=== PATIENT | male | born 1995 | race Caucasian/White ===

== ENCOUNTER → 2018-03-06 | Outpatient (CLI) | payer BC ==
[~2018-03-06] MED LIST: EPIN0.3P15 IM; IOPAMIDOL 76% 75 ML INFUS BTL 75 ML ONE; PRED20TA6 PO
--- NOTE | 2018-03-06 17:30 | RADIOLOGY IMAGING REPORT ---
FACILITY: [facility] PATIENT NAME: Chuck Lopez : 1995 MR: [id number] V: [id number] EXAM DATE: ORDERING PHYSICIAN: RAVIN VALERIO TECHNOLOGIST: Location: [facility] - [place] Patient: Chuck Lopez : 1995 Visit/Account:[id number] Date of Sevice: 03/06/2018 NECK SOFT TISSUE W CONTRAST History: left cervical lymphadenopathy COMPARISON STUDIES: none TECHNIQUE: Contiguous axial images were obtained from the skull base through the upper thoracic spin e following administration of IV contrast . Coronal and sagittal reformatted images were obtained fro m the axial source data. One of the following dose optimization techniques was utilized in the perfor yelitza of this exam: Automated exposure control; adjustment of the mA and/or kV according to the patie nt's size; or use of an iterative reconstruction technique. Specific details can be referenced in [facility]'s radiology CT exam operational policy. Contrast: 75 mL Isovue-370 FINDINGS: Soft tissues: There is no evidence of cervical lymphadenopathy. Does several lymph nodes measuring a pproximately 1 cm diameter seen in the levels 2 and 3. There are no enlarged nodes. Soft tissues of [facility] neck are unremarkable in appearance. Osseous structures: Cervical spine appears normal. Visualize paranasal sinuses : well aerated Thyroid: Normal Visualized portions of the brain: unremarkable Visualized portions of the lungs: Well aerated and unremarkable. IMPRESSION: Normal study. There is no evidence of cervical lymphadenopathy.: Report Dictated By: Ray Duran MD at 03/06/2018 5:21 PM Report E-Signed By: Ray Duran MD at 03/06/2018 5:26 PM WSN:[id number]
== END ==
LOC: CT 03:27
PROVIDERS: ATTEND Otolaryngology
DX: R59.0 Localized enlarged lymph nodes (principal)
CPT/HCPCS: 70491; Q9967

== ENCOUNTER → 2018-09-30 | Outpatient (CLI) | payer BC ==
[~2018-09-30] MED LIST changes: -IOPAMIDOL 76% 75 ML INFUS BTL 75 ML ONE
--- NOTE | 2018-09-30 13:46 | RADIOLOGY IMAGING REPORT ---
FACILITY: [facility] PATIENT NAME: Chuck Lopez : 1995 MR: [id number] V: [id number] EXAM DATE: ORDERING PHYSICIAN: ANAT SANTANA TECHNOLOGIST: Location: [facility] [place] Patient: Chuck Lopez : 1995 Visit/Account:[id number] Date of Sevice: 09/30/2018 EXAMINATION: Ultrasound thyroid HISTORY: Dysphagia COMPARISON: None. FINDINGS: Thyroid size: Right lobe: 4.8 x 1.3 x 1.7 cm Left lobe: 5.1 x 1.3 x 1.7 cm Isthmus: 0.2 cm Thyroid heterogeneity: Homogeneous background thyroid parenchyma. Thyroid vascularity: Normal. Thyroid nodules: Right lobe: * Superior pole cyst with eccentric solid, 6 mm. * Other subcentimeter scattered cysts with mural hyperechogenicities. Left lobe: * Several subcentimeter scattered cysts with mural hyperechogenicities. Isthmus: * None discrete. Additional findings: None. IMPRESSION: Borderline enlarged thyroid gland containing several subcentimeter cysts and a low suspi cion cystic nodule. REFERENCE: 2015 [place] [employer] Management Guidelines for Adult Patients with Thyroid Nodules and D ifferentiated Thyroid Cancer: The [place] [employer] Guidelines Task Force on Thyroid Nodul es and Differentiated Thyroid Cancer. SONOGRAPHIC PATTERNS: * Benign: Purely cystic nodules (no solid component); estimated risk of malignancy <1 percent; no bi opsy recommended. * Very Low Suspicion: Spongiform or partially cystic nodules without any of the sonographic features described in low, intermediate, or high suspicion patterns; estimated risk of malignancy <3 percent; consider FNA at > 2 cm (Observation without FNA is also a reasonable option). * Low Suspicion: Isoechoic or hyperechoic solid nodule, or partially cystic nodule with eccentric so lid areas, without microcalcification, irregular margin or ETE (extra-thyroidal extension), or taller than wide shape; estimated risk of malignancy 5-10 percent; recommend FNA at >1.5 cm. * Intermediate Suspicion: Hypoechoic solid nodule with smooth margins without microcalcifications, E TE (extra-thyroidal extension), or taller than wide shape; estimated risk of malignancy 10-20 percent ; recommend FNA at > 1 cm. * High Suspicion: Solid hypoechoic nodule or solid hypoechoic component of a partially cystic nodule with one or more of the following features: irregular margins (infiltrative, microlobulated), microc alcifications, taller than wide shape, rim calcifications with small extrusive soft tissue component, evidence of ETE (extra-thyroidal extension); estimated risk of malignancy >70-90 percent; recommend FNA at > 1 cm. NOTES: * Although a sonographically suspicious subcentimeter thyroid nodule without evidence of extrathyroi gennaro extension or sonographically suspicious lymph nodes may be observed with close sonographic follow -up rather than pursuing immediate FNA, patient age and preference may modify decision-making. * A > 50% interval increase in nodule volume and/or development of new suspicious sonographic featur es are felt to be a valid reasons for potential re-aspiration of a nodule previously shown to have be nign FNA cytology. Report Dictated By: Leena Richardson MD at 09/30/2018 1:37 PM Report E-Signed By: Leena Richardson MD at 09/30/2018 1:41 PM WSN:[id number]
== END ==
LOC: US 00:38
PROVIDERS: ATTEND Nurse Practitioner Psychiatric/Mental Health
DX: E04.2 Nontoxic multinodular goiter (principal)
CPT/HCPCS: 76536

== ENCOUNTER → 2019-06-29 | Outpatient (CLI) | payer BC ==
--- NOTE | 2019-06-29 11:22 | RADIOLOGY IMAGING REPORT ---
[facility] PATIENT NAME: Chuck Lopez : 1995 MR: [id number] V: [id number] EXAM DATE: ORDERING PHYSICIAN: ANAT SANTANA TECHNOLOGIST: Location: [facility] Patient: Chuck Lopez : 1995 Visit/Account:[id number] Date of Sevice: 06/29/2019 THYROID HISTORY: Multinodular goiter COMPARISON: September 30, 2018 FINDINGS: SIZE: Normal. Right lobe: 4.5 x 1.6 x 2.2 cm Left lobe: 4.9 x 1.5 x 2.1 cm Isthmus: 3.4 mm PARENCHYMA: NODULES: Right lobe: * There are multiple subcentimeter cystic and solid nodules. The largest measures 6 mm Left lobe: * There are multiple small cystic and solid nodules the largest measures 6 mm Isthmus: * None discrete. VASCULARITY: Within normal limits. ADDITIONAL FINDINGS: None. IMPRESSION: There are multiple small subcentimeter thyroid nodules bilaterally REFERENCE: 2015 [place] [employer] Management Guidelines for Adult Patients with Thyroid Nodules and D ifferentiated Thyroid Cancer: The [place] [employer] Guidelines Task Force on Thyroid Nodul es and Differentiated Thyroid Cancer. SONOGRAPHIC PATTERNS: * Benign: Purely cystic nodules (no solid component); estimated risk of malignancy <1 percent; no bi opsy recommended. * Very Low Suspicion: Spongiform or partially cystic nodules without any of the sonographic features described in low, intermediate, or high suspicion patterns; estimated risk of malignancy <3 percent; consider FNA at > 2 cm (Observation without FNA is also a reasonable option). * Low Suspicion: Isoechoic or hyperechoic solid nodule, or partially cystic nodule with eccentric so lid areas, without microcalcification, irregular margin or ETE (extra-thyroidal extension), or taller than wide shape; estimated risk of malignancy 5-10 percent; recommend FNA at >1.5 cm. * Intermediate Suspicion: Hypoechoic solid nodule with smooth margins without microcalcifications, E TE (extra-thyroidal extension), or taller than wide shape; estimated risk of malignancy 10-20 percent ; recommend FNA at > 1 cm. * High Suspicion: Solid hypoechoic nodule or solid hypoechoic component of a partially cystic nodule with one or more of the following features: irregular margins (infiltrative, microlobulated), microc alcifications, taller than wide shape, rim calcifications with small extrusive soft tissue component, evidence of ETE (extra-thyroidal extension); estimated risk of malignancy >70-90 percent; recommend FNA at > 1 cm. NOTES: * Although a sonographically suspicious subcentimeter thyroid nodule without evidence of extrathyroi gennaro extension or sonographically suspicious lymph nodes may be observed with close sonographic follow -up rather than pursuing immediate FNA, patient age and preference may modify decision-making. A > 50% interval increase in nodule volume and/or development of new suspicious sonographic features are felt to be a valid reasons for potential re-aspiration of a nodule previously shown to have benig n FNA cytology. Report Dictated By: Diane Ruiz MD at 06/29/2019 10:45 AM Report E-Signed By: Diane Ruiz MD at 06/29/2019 11:12 AM WSN:[email or web address]
== END ==
LOC: US 01:05
PROVIDERS: ATTEND Nurse Practitioner Psychiatric/Mental Health
DX: E04.2 Nontoxic multinodular goiter (principal)
CPT/HCPCS: 76536